=== PATIENT | female | born 1985 | race African-American/Black ===

== ENCOUNTER 2020-12-01 17:52 | Emergency (ER) | payer BC ==
[~2020-12-01] VITALS: Ht 165.1 cm; Wt 118.8 kg
[2020-12-01 18:07] VITALS: Ht 165.1 cm; Wt 118.8 kg
[2020-12-01 19:21] LABS: BASOPHIL % 0.3 % (0.2-1.3); PLATELET COUNT 340 x10^3mcL (179-408); RED CELL DISTRIBUTION WIDTH 12.7 % (12.3-17.7)
[2020-12-01 19:38] LABS: CALCIUM 9.3 mg/dL (8.5-10.1); CARBON DIOXIDE 26.6 mmol/L (21-32); CHLORIDE SERUM 104 mmol/L (98-107); CREATININE SERUM 0.8 mg/dL (0.6-1.0); GFR1 > 60 mL/min; GLUCOSE SERUM 90 mg/dL (74-106); POTASSIUM SERUM 3.9 mmol/L (3.5-5.1); SODIUM SERUM 137 mmol/L (136-145)
[2020-12-01 19:52] LABS: T3 TOTAL 1.27 ng/mL
[2020-12-01 20:00] LABS: FREE T4 0.97 ng/dL (0.76-1.46); FREE THYROXINE INDEX 2.7 ug/dL (1.4-4.5); T4(THYROXINE) 8.8 ug/dL (4.7-13.3)
[2020-12-01 20:01] LABS: ALBUMIN 3.7 g/dL (3.4-5.0); ALKALINE PHOSPHATASE 70 U/L (46-116); ALT/SGPT 64 U/L (14-59); AST/SGOT 29 U/L (15-37); BILIRUBIN TOTAL 0.37 mg/dL (0.20-1.00); CHOLESTEROL 175 mg/dL (<200); CHOLESTEROL/HDL RATIO 4.2; HDL CHOLESTEROL 42 mg/dL (40-60); LIPASE 191 IU/L (73-393); MAGNESIUM 2.1 mg/dL (1.8-2.4); TOTAL PROTEIN, SERUM 7.4 g/dL (6.4-8.2); TRIGLYCERIDES 100 mg/dL (<150)
[2020-12-01 20:26] VITALS: BP 143/85
== END 2020-12-01 20:26 | disposition home or self-care (01) ==
LOC: ED 17:52
PROVIDERS: Specialist
DX: R07.89 Other chest pain (principal)
CPT/HCPCS: 83880; 84439